=== PATIENT | male | born 1960 | race Caucasian/White ===

== ENCOUNTER 2020-11-27 09:52 | Emergency (ER) | payer OTHER ==
[~2020-11-27] VITALS: Ht 177.8 cm; Wt 70.3 kg
[2020-11-27 10:21] LABS: ABSOLUTE BASOPHILS 0.1 thou/uL (0.0-0.2); ABSOLUTE EOSINOPHILS 0.4 thou/uL (0.0-0.7); ABSOLUTE LYMPHOCYTES 1.6 thou/uL (0.8-5.3); ABSOLUTE MONOCYTES 0.5 thou/uL (0.0-1.2); ABSOLUTE NEUTROPHILS 4.8 thou/uL (1.6-8.1); BASOPHILS 1.3 %; EOSINOPHILS 5.9 %; HEMATOCRIT 42.7 % (42.0-52.0); HEMOGLOBIN 14.6 gm/dL (14.0-18.0); LYMPHOCYTES 21.6 %; MCHC 34.1 g/dL (28.0-37.0); MCV 96.8 fL (80.0-100.0); MONOCYTES 6.5 %; MPV 7.7 fl. (7.2-11.1); NUCLEATED RBCS 0 /100WBC; PLATELET COUNT* 188 thou/uL (150-400); POLYS 64.7 %; RBC 4.41 mil/uL (4.50-6.00); RDW-CV 13.6 % (10.5-14.5); WBC 7.4 thou/uL (4.0-11.0)
[2020-11-27 10:29] LABS: CALCIUM 9.4 mg/dL (8.5-10.1); POTASSIUM 4.4 mmol/L (3.5-5.1)
[2020-11-27 10:40] LABS: ALBUMIN 3.6 g/dL (3.4-5.0); TOTAL BILIRUBIN 0.2 mg/dL (<0.1-1.0); TOTAL PROTEIN 6.8 g/dL (6.4-8.2)
--- NOTE | 2020-11-27 11:40 | EKG ---
[place] [address] ELECTROCARDIOGRAM REPORT Name: MARCIA WALKER Room: [facility]#: [id number] Admission: 11/27/20 Attend Phys: Discharge: Date of : 64 Date of Service: 11/27/20 1000 Report #: [id number] THIS REPORT FOR: //name// [facility] ED Test Date: 2020-11-27 Test Time: 10:00:31 Pat Name: MARCIA WALKER Department: Room: Gender: [employer] Operator: : 1960 Requested By: Jc Edmond Order Number: [id number] MD: Jose Garcia Measurements Intervals [place] Rate: 51 P: 19 HI: 169 QRS: 52 QRSD: 89 T: 54 QT: 430 QTc: 397 Interpretive Statements Sinus bradycardia Anteroseptal infarct, old Baseline wander in lead(s) V2 No previous ECG available for comparison Electronically Signed On 11-27-2020 11:40:02 CDT by Jose Garcia [email or web address] <ELECTRONICALLY SIGNED> By: Jose Garcia MD, [facility] 11/27/20 1140 1000 1000 Jose Garcia MD, FAC /EPI
[2020-11-27 13:15] VITALS: BP 114/78
== END 2020-11-27 13:20 | disposition short-term general hospital (02) ==
LOC: M.ERS 09:52
PROVIDERS: Emergency Medicine Emergency Medical Services
DX: G93.89 Other specified disorders of brain (principal); Z20.822 Contact with and (suspected) exposure to COVID-19; R56.9 Unspecified convulsions; R41.82 Altered mental status, unspecified; Z88.0 Allergy status to penicillin